=== PATIENT | female | born 1955 | race Caucasian/White ===

== ENCOUNTER 2023-05-23 16:31 | Emergency (ER) | payer OTHER, SELFPAY ==
[2023-05-23] VITALS (12 sets, daily range): BP systolic 155–180; BP diastolic 63–98; PULSE 72–93; RESP 13–29; TEMP 36.6; O2SAT 93–99
--- NOTE | ~2023-05-23 | CT_ITS ---
EXAMINATION: CT brain wo con DATE: 05/23/2023 17:33 INDICATION: Dizziness TECHNIQUE: Computed tomography (CT) of the head was performed without intravenous contrast. The mA wa s adjusted according to patient size. Iterative reconstruction technique was employed. Exam dose: 68 1.00 mGy-cm total exam DLP. COMPARISON: None FINDINGS: Bilateral vertebral artery and bilateral carotid siphon internal carotid artery calcificati ons. There is nonspecific diminished attenuation of the cerebral white matter, which may be due to chronic small vessel ischemic changes. No intracranial mass lesion or hemorrhage or cerebrovascular accident. No midline shift or mass effec t. Normal ventricular size. No subdural or epidural hematoma. The mastoid air cells and included paranasal sinuses are normally developed and aerated with the exce ption of a mucous retention cyst in the posterior lateral right sphenoid sinus. No fracture or bone destruction of the cranial vault. IMPRESSION: Cerebral atherosclerosis and chronic small vessel ischemic changes of the cerebral white matter No acute intracranial finding Reviewed, dictated and finalized at [facility]. Reviewed, dictated and finalized at [facility].
--- NOTE | 2023-05-23 16:40 | ECG_ITS ---
Measurements Intervals [facility] Rate: 77 P: 48 NV: 172 QRS: 38 QRSD: 93 T: 38 QT: 381 QTc: 432 Interpretive Statements SINUS RHYTHM BASELINE ARTIFACT- I, II, III, AVR, AVL, AVF, V1 NORMAL ECG NO PREVIOUS ECG AVAILABLE FOR COMPARISON Electronically Signed On 05-23-2023 20:21:16 CDT by Carlos Galeano D.O.
[2023-05-23 17:06] LABS: Basophils Percent Auto 0.3 % (0.2-1.2); Eosinophils Absolute Auto 0.1 K/mm3 (0-0.3); Eosinophils Percent Auto 1.8 % (0-4.4); Hematocrit 45.7 % (37.0-47.0); Hemoglobin 14.7 g/dL (12.0-15.0); Immature Granulocyte Absolute 0.01 K/mm3 (0.00-0.031); Immature Granulocyte Percent A 0.1 % (0-0.5); Lymphocytes Absolute Auto 2.81 K/mm3 (0.9-3.2); Lymphocytes Percent Auto 36.7 % (18.3-44.2); Mean Corpuscular HGB Conc 32.2 g/dl (32-36); Mean Corpuscular Hemoglobin 30.6 pg (26-34); Mean Platelet Volume 12.3 fl (7.4-10.4); Monocytes Absolute Auto 0.6 K/mm3 (0.1-0.6); Monocytes Percent Auto 7.3 % (2.6-8.5); Neutrophils Absolute Auto 4.1 K/mm3 (1.3-6.7); Neutrophils Percent Auto 53.8 % (45.5-73.1); Platelet Count Result 181 k/mm3 (150-375); Red Blood Count 4.81 M/mm3 (4.2-5.4); Red Cell Distribution Width 13.5 % (11.5-14.5); White Blood Count 7.7 K/mm3 (4.5-10.0)
[2023-05-23 17:15] LABS: Alanine Aminotransferase 24 U/L (6-35); Albumin Level 4.2 g/dL (3.5-5.1); Alkaline Phosphatase 74 U/L (38-126); Anion Gap 6 mmol/L (8-16); Aspartate Amino Transferase 20 U/L (14-36); Bilirubin,Total 0.4 mg/dL (0.2-1.3); Blood Urea Nitrogen 19 mg/dL (7-17); Calcium 9.2 mg/dL (8.4-10.2); Carbon Dioxide 32 mmol/L (22-30); Chloride 100 mmol/L (98-107); Estimated CRCL calculation 77 ml/min; Estimated Glomerular Filt Rate > 60; Glucose 111 mg/dL (65-110); Potassium 4.5 mmol/L (3.4-5.0); Sodium 138 mmol/L (137-145)
--- NOTE | 2023-05-23 17:17 | ED.DIZZY ---
HPI - Dizziness General Chief Complaint: Dizziness Stated Complaint: sudden onset dizzy/numbness Time Seen by Provider: 05/23/23 17:05 Source: patient Mode of arrival: ambulatory Limitations: no limitations History of Present Illness HPI Narrative: 67 year old female presents today with complaints of episode of dizziness that started about 330. Patient states she was sitting at her desk when she ended up getting dizzy. She put her head between her legs think that would make things better and it made it worse. She does work at a doctor's office. Patient states there were 2 doctors and a RN at the scene. Patient is the episode lasted about 15 minutes. Denies any neurological issues at that time. States that she thought maybe her speech was a little bit slurred but not sure. Currently no dizziness, no slurred speech, no headache, no chest pain, no shortness of breath, no other complaints at this time. Patient recently was restarted on blood pressure meds by her primary care physician about 2 or so weeks ago. Also was treated for UTI about 1 week ago. States she did have a repeat urinalysis done which showed no UTI. MD elicited complaint: dizziness Timing: sudden onset Severity: moderate Description: room spinning Context: change in medication and change in body position Exacerbating factors: movement/ambulation Relieving factors: lying down Related Data Allergies Allergy/AdvReac Type Severity Reaction Status Date / Time Penicillins Allergy Unknown Verified 04/14/13 15:54 Review of Systems Review of Systems: CONSTITUTIONAL: Denies fever, chills, or sweats. EYES: Denies visual changes, redness, or discharge. CARDIOVASCULAR: Denies chest pain, palpitations, or edema. RESPIRATORY: Denies cough or dyspnea. GASTROINTESTINAL: Denies abdominal pain, nausea, vomiting, or diarrhea. GENITOURINARY: Denies dysuria or hematuria. SKIN: Denies rash or itching. MUSCULOSKELETAL: Denies back pain, joint pain, or myalgia. NEUROLOGIC: Episode of dizziness lasting 15 minutes at about 330. Denies headache, numbness, or weakness. PSYCHIATRIC: Denies anxiety or depression. [facility] Family History Family History (Updated 07/15/14 @ 07:13 by DOCTOR UNKNOWN) Mother Hypertension Father Family history of heart disease in male family member before age 55 Acute myocardial infarction Social History Social History Alcohol intake: never Exam Const: General: cooperative, healthy appearing, comfortable, no acute distress and well developed Orientation/consciousness: patient oriented x3 HENMT: Head: normal to inspection Eyes: General: appearance normal, both eyes and all related structures Pupils: Equal, round and reactive pupils present EOM: EOMs intact bilaterally Resp: Effort & Inspection: normal respiratory effort and able to speak in complete sentences Auscultation: clear to auscultation bilaterally Cardio: Rate: regular rate Rhythm: regular rhythm Heart sounds: S1 normal heart sound present and S2 normal heart sound present Skin: General skin exam: normal color Neuro: General: patient oriented x3 and moves all extremities Cranial nerves: Yes CN's II-XII intact bilaterally, Yes Nystagmus not present, Yes facial symmetry, Yes Midline tongue present and Yes Ability to bilaterally elevate shoulders present Speech: normal speech Gait exam (Neuro): Normal gait present Motor exam (neuro): 5/5 motor strength present throughout Coordination: Romberg test negative Romberg Test: negative Course Course Emergency Course: Patient without incident of dizziness during stay. Able to walk without difficulty. Discussed ct findings that nothing was acute. Patient aware that bp is elevated here and she needs to follow up with primary. She was just recently restarted on her bp medications and had planned to follow up with primary in about 1 week. patient will be discharged home. Reviewed need for close follow up with primary and when t
--- NOTE | 2023-05-23 17:31 | PC.NURSE ---
pt. was taken off the floor to CT @[id number]
--- NOTE | 2023-05-23 17:35 | PC.NURSE ---
pt. back to the floor from CT @[id number].
[2023-05-23 17:49] LABS: Appearance Urine Clear (Clear); Bacteria Urine None Seen /hpf; Bilirubin Urine Negative (Negative); Blood Urine Negative (Negative); Color Urine Yellow (Yellow); Glucose Urine UA Negative (Negative); Ketones Urine Negative (Negative); Leukocyte Esterase Ur 1+ LEU/UL (Negative); Nitrate Urine Negative (Negative); Protein Urine Negative (Negative); RBC Urine 0-2 /hpf (0-2); Specific Grav Ur 1.019 (1.001-1.035); Squamous Epithelial Cell Urine Few /hpf (Few); Urobilinogen Urine 0.2 mg/dL (<2.0); WBC Urine 21-50 /hpf; pH Urine 5.5 (5.0-9.0)
[2023-05-23 17:51] LABS: Add Urine Microscopic? YES
== END 2023-05-23 17:53 | disposition home or self-care (01) ==
PROVIDERS: Emergency Medicine; Emergency Provider Nurse Practitioner Family; PCP Physician Assistant
DX: H81.10 Benign paroxysmal vertigo, unspecified ear (principal); I10 Essential (primary) hypertension; I67.2 Cerebral atherosclerosis
CPT/HCPCS: 36415; 70450; 80053; 81001; 85025; 87086; 87088; 93005; 99284